=== PATIENT | male | born 1965 | race Caucasian/White ===

== ENCOUNTER 2016-08-02 22:40 | Emergency (ER) | payer MEDICARE, OTHER ==
[2016-08-02] MEDS ORDERED: NORMAL SALINE 1,000 ML IV PRN (23:19)
[2016-08-02] MEDS ORDERED: ONDANSETRON HCL/PF 2 MG/ML VIAL IV ONE (23:38)
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
[2016-08-02 23:54] LABS: Hematocrit 56.4 % (42.0-52.0); Hemoglobin 19.1 gm/dL (13.5-18.0); Mean Cell Volume 84.6 fl (78-100); Mean Corpuscular Hemoglobin 28.6 pg (27-31); Mean Corpuscular Hgb Conc 33.9 g/dl (32-36); Mean Platelet Volume 9.2 fl (6.0-9.5); Neutrophil # 9.8 K/mm3 (1.3-6.0); Neutrophil % 77.9 % (42-75.0); Platelet Count 323 K/mm3 (150-450); Red Blood Count 6.67 M/mm3 (4.7-6.0); Red Cell Distribution Width 14.1 % (11.5-14.0); White Blood Count 12.5 K/mm3 (4.0-10.5)
[2016-08-03] MEDS ORDERED: METHYLPREDNISOLONE SOD SUCC/PF 40 MG/ML VIAL IV ONE (00:01)
[2016-08-03] MEDS ORDERED: diphenhydrAMINE HCL 50 MG/ML VIAL IV ONE (00:01)
[2016-08-03 00:03] LABS: Anion Gap 13.7 mmol/L (6.8-13.8); BUN/Creatinine Ratio 21.4 (9.0-21.6); Calcium * 9.1 mg/dL (7.9-10.9); Carbon Dioxide 21.8 mmol/L (24-32.6); Estimated Creat Clear 47.9; Potassium 4.5 mmol/L (3.4-4.6)
[2016-08-03] MEDS ORDERED: METHYLPREDNISOLONE SOD SUCC/PF 125 MG/2 ML VIAL ONE (00:04)
[2016-08-03] MEDS ORDERED: diphenhydrAMINE HCL 50 MG/ML VIAL ONE (00:04)
[2016-08-03] MEDS ORDERED: ONDANSETRON HCL/PF 2 MG/ML VIAL ONE (00:04)
[2016-08-03 03:02] LABS: Urine Bilirubin Negative (NEGATIVE); Urine Blood 25 /ul (NEGATIVE); Urine Ketone Negative (NEGATIVE); Urine Nitrite Negative (NEGATIVE); Urine Protein 100 mg/dL (NEGATIVE); Urine Specific Gravity >=1.030 SP.GR. (1.005-1.030); Urine Urobilinogen Normal (NORMAL)
[2016-08-03 03:15] LABS: Urine Amorphous Sediment Many - 3+ (NONE-FEW); Urine Appearance Clear; Urine Bacteria None Seen; Urine Color Yellow; Urine RBC 0-5 /hpf (0-5); Urine WBC 0-5 /hpf (0-5)
[2016-08-03 05:01] VITALS: BP 137/78
== END 2016-08-03 03:39 ==
LOC: ER 22:40
DX: A08.4 Viral intestinal infection, unspecified (principal); L50.9 Urticaria, unspecified; D64.9 Anemia, unspecified; E11.9 Type 2 diabetes mellitus without complications; E03.9 Hypothyroidism, unspecified; I10 Essential (primary) hypertension
CPT/HCPCS: 36415; 80048; 81001; 85025; 87086; 87493; 96374; 96375; 99284; J2405

== ENCOUNTER 2016-08-04 07:56 | Emergency (ER) | payer MEDICARE, OTHER ==
--- NOTE | 2016-08-04 08:14 | ERNOTE ---
Integumentary HPI - General Presenting Symptoms: rash Time Seen by Provider: 08/04/16 08:01 Source: family Exam Limitations: no limitations - Immun/Allergies/Home Medications Immunizations: IMMUNIZATION HX Immunizations Up to Date Yes History of Influenza Vaccine Yes Allergies/Adverse Reactions: Allergies Allergy/AdvReac Type Severity Reaction Status Date / Time Penicillins Allergy Verified 08/04/16 08:05 Home Medications: HOME MEDICATIONS Aspirin 81 mg PO DAILY 08/03/16 [Last Taken Unknown] Levothyroxine Sodium [Levo-T] 75 mcg PO DAILY 08/03/16 [Last Taken Unknown] Metoprolol Succinate [Toprol Xl] 50 mg PO DAILY 08/03/16 [Last Taken Unknown] Multivitamin,Therapeutic [Thera-Tabs] 1 each PO DAILY 08/03/16 [Last Taken Unknown] Ondansetron [Zofran Odt] 4 mg PO Q6H PRN #7 tab 08/03/16 [Last Taken Unknown] amLODIPine BESYLATE [Norvasc] 5 mg PO DAILY 08/03/16 [Last Taken Unknown] diphenhydrAMINE HCL [Benadryl] 25 mg PO HS 08/03/16 [Last Taken Unknown] diphenhydrAMINE HCL [Benadryl] 50 mg PO Q6H #20 capsule 08/03/16 [Last Taken Unknown] glipiZIDE [Glipizide] 5 mg PO BID 08/03/16 [Last Taken Unknown] hydrOXYzine HCL [Atarax] 25 mg PO Q4H PRN #40 tab 08/04/16 [Last Taken Unknown] - History of Present Illness Narrative: This patient has traumatic brain injury and is resident of a assisted facility. He is brought in by a concerned family member and EMS for having had a generalized pruritic rash all over his body which began 2 days ago and has gotten progressively worse there is no history of any new products. Is no history of any new medications or foods. She was prescribed Zofran and Benadryl yesterday patient's family member states that the rash got worse after the Benadryl. Review of Systems - Review of Systems Constitutional: Present: no symptoms reported EYE: Present: no symptoms reported ENT: Present: no symptoms reported Respiratory: Present: no symptoms reported Cardiology: Present: no symptoms reported Gastrointestinal/Abdominal: Present: no symptoms reported Genitourinary: Present: no symptoms reported Musculoskeletal: Present: no symptoms reported Skin: Present: See HPI - patient has a generalized maculopapular rash all over, it is red and it is generalized on the trunk and extremities and it appears to be worse in areas with the patient has scratched it. She has scratched into what appears to be elevated hives. There appeared to be multiple insect bites on the anterior tibial region bilaterally. Those have been scratched and are now scabbed over but they do not appear infected at this time. - Patient's Past Medical History Patient History - Medical: Anemia, Diabetes Type 2, Hypothyroidism, Obesity, Renal Disease, Other Patient History - Cardiac/Respiratory: Hypertension Patient History - Cancer: No Hx of Cancer Patient History - Surgical Procedures: T & A, Other Patient History - Other: None - Social History Living Situations: custodial Psych History: No pertinent hx Alcohol Use: none Drug Use: none - Immunizations Immunizations Up to Date: Yes History of Influenza Vaccine: Yes Physical Exam - Physical Exam General Appearance: Present: wd/wn, alert, no apparent distress, other - she has traumatic brain injury with the depression of the skull on the left parietal region. He does not appear to be in any distress. Ears, Nose, Throat: Present: normal ENT inspection, normal pharynx, other - patient has a good and patent airway without any signs of inflammation in the throat any stridor or or wheezing Neck: Present: normal inspection, nontender Respiratory: Present: no respiratory distress, normal breath sounds, no accessory muscle use, chest nontender, lungs clear, other - there appears to be no rest or distress Cardiovascular/Chest: Present: regular rate, rhythm, no murmur, normal peripheral pulses Gastrointestinal/Abdominal: Present: normal bowel sounds, soft Skin Exam: Present: skin rash - there is a generalized reddish maculopapular rash all over the trunk and arms and extremities face has been spared the rash is welted up in areas where the patient has been scratching at these are coalesced hives. There are no insect bites on the anterior tibial regions bilaterally. ED Progress - Vital Signs Patient's Vital Signs:: I have reviewed the patient's vital signs. Vital Signs: Vital Signs 08/04/16 07:59 Temperature 36.1 C L Pulse Rate 112 H Respiratory 16 Rate Blood Pressure 139/84 O2 Sat by Pulse 92 Oximetry - Progress/Reassessment Chief Complaint: Rash Plan - Plan Plan: I believe this patient is having some kind of an allergic reaction to an unknown substance. While the family member expresses concern about the Benadryl being the culprit this examiner disagrees because the patient had itching before the Benadryl was administered yesterday. Subsequently the rash has not gotten better and it has gotten worse we will treat this patient with Solu-Medrol 125 mg IV and Atarax and advised that constricting clothing be removed of this patient. After administration of Solu-Medrol 125 mg patient rash improved slightly patient will be discharged home to take Atarax I have advised the patient's family members that the patient is to be in a cool environment not in the sun and not exposed to hot climates. Departure Clinical Impression: Hives - Departure Disposition: Home self-care Condition: Fair Instructions: Contact Dermatitis, [id number] Referrals: Eric Sanderson MD [Primary Care Provider] - Prescriptions: hydrOXYzine HCL [Atarax] 25 mg PO Q4H PRN #40 tab PRN Reason: Itching
--- OUTSIDE RECORDS SUMMARY | 2016-08-04 08:15 | XMS REPORT | Continuity of Care Document ---
:1965 Author Organization [facility] ([facility]) Address [address] [place] [address] Phone [phone] Care Team Providers Name Role Phone Pierce Monson Primary Care Provider [phone] Source Comments This disclosure is being made pursuant to the Care Everywhere program, applicable federal and state laws, and may not contain all informaitonavailable regarding this patient.[facility] ([facility]) Active Allergies and Adverse Reactions Allergen Noted [...] Taken Blood Pressure 148/103 01/27/2016 5:19 PM [employer] Pulse 97 01/27/2016 5:19 PM [employer] Temperature 36.1 C (97 F) 01/27/2016 5:19 PM [employer] Respiratory Rate 21 01/27/2016 5:19 PM [employer] Height 1.727 m (5' 7.99") 06/13/2015 11:24 AM CDT Weight 92 kg (202 lb 13.2 oz) 06/13/2015 11:24 AM CDT Body Mass Index 30.85 06/13/2015 11:24 AM CDT Oxygen Saturation 99% 01/27/2016 5:19 PM [employer] Plan of Care Health Maintenance Due Date [...]
[2016-08-04] MEDS ORDERED: hydrOXYzine PAMOATE 25 MG CAPSULE PO ONE (08:37)
[2016-08-04] MEDS ORDERED: METHYLPREDNISOLONE SOD SUCC/PF 125 MG/2 ML VIAL IV ONE (08:50)
[2016-08-04] MEDS ORDERED: hydrOXYzine PAMOATE 25 MG CAPSULE ONE (08:50)
[2016-08-04] MEDS ORDERED: METHYLPREDNISOLONE SOD SUCC/PF 125 MG/2 ML VIAL ONE (08:51)
[2016-08-04 09:01] VITALS: BP 150/96
[2016-08-04] MEDS ORDERED: NORMAL SALINE 1,000 ML IV ONE (09:08)
== END 2016-08-04 09:41 | disposition short-term general hospital (02) ==
LOC: ER 07:56
DX: L50.6 Contact urticaria (principal); D64.9 Anemia, unspecified; E11.9 Type 2 diabetes mellitus without complications; E03.9 Hypothyroidism, unspecified; I10 Essential (primary) hypertension